=== PATIENT | male | born 1960 | race Caucasian/White ===

== ENCOUNTER 2017-05-07 17:49 | Emergency (ER) | payer MEDICAID, SELFPAY ==
[~2017-05-07] VITALS: Ht 172.7 cm; Wt 98.0 kg
[2017-05-07] MEDS ORDERED: KETOROLAC 30 MG/1 ML IM ONE (18:00)
[2017-05-07] MEDS ORDERED: PLEASE ENTER ALLERGIES MC SCH ×2 (18:00)
[2017-05-07] MEDS ORDERED: METHOCARBAMOL 750 MG TABLET PO ONE (18:00)
[2017-05-07] MEDS ORDERED: PLEASE ENTER HEIGHT AND WEIGHT MC SCH (18:00)
[2017-05-07 18:15] VITALS: BP 148/74
[2017-05-07] MEDS ORDERED: METHOCARBAMOL 750 MG TABLET ONE (18:21)
[2017-05-07] MEDS ORDERED: KETOROLAC 30 MG/1 ML ONE (18:21)
== END 2017-05-07 19:55 | disposition home or self-care (01) ==
LOC: ED 19:21
DX: S39.012A Strain of muscle, fascia and tendon of lower back, initial encounter (principal); X58.XXXA Exposure to other specified factors, initial encounter; Y93.89 Activity, other specified; Y92.89 Other specified places as the place of occurrence of the external cause; Y99.8 Other external cause status
CPT/HCPCS: 36415; 80047; 81003; 84484; 96372; 99284; J1885

== ENCOUNTER 2018-06-03 07:34 | Emergency (ER) | payer MEDICAID ==
[~2018-06-03] VITALS: Ht 177.8 cm; Wt 91.1 kg
[2018-06-03 07:36] VITALS: BP 152/86
== END 2018-06-03 08:16 | disposition home or self-care (01) ==
LOC: ED 08:10
DX: H66.011 Acute suppurative otitis media with spontaneous rupture of ear drum, right ear (principal); H65.02 Acute serous otitis media, left ear; J00 Acute nasopharyngitis [common cold]; M54.9 Dorsalgia, unspecified; G89.29 Other chronic pain
CPT/HCPCS: 99283

== ENCOUNTER 2018-09-27 07:22 | Emergency (ER) | payer BC ==
[~2018-09-27] VITALS: Ht 177.8 cm; Wt 93.0 kg
--- NOTE | 2018-09-27 07:37 | NUR ---
pain and swelling of the r testicle started 1 mo ago
--- NOTE | 2018-09-27 09:26 | NUR ---
given dc instruction pt understood
--- NOTE | 2018-09-27 09:31 | NUR ---
given us result for follow up with urologist following up
[2018-09-27 09:32] VITALS: BP 98/65
== END 2018-09-27 09:34 | disposition home or self-care (01) ==
LOC: ED 09:28
DX: N50.3 Cyst of epididymis (principal)
CPT/HCPCS: 76870; 99284